=== PATIENT | female | born 1990 | race Caucasian/White ===

== ENCOUNTER 2017-08-09 22:23 | Emergency (ER) | payer BC ==
[~2017-08-09] VITALS: Ht 157.5 cm; Wt 62.0 kg
[~2017-08-09 22:23] MED LIST: CEPH500C3 PO; METR-1 PO; PERC5TAB12 PO; STOO100C PO
[2017-08-09 22:28] VITALS: BP 157/69; PULSE 97; RESP 16; TEMP 98.7; O2SAT 99
[2017-08-10] MEDS ORDERED: CLINDAMYCIN 600 MG/NS PREMIX 50 ML IV ONE (00:45)
--- NOTE | 2017-08-10 01:21 | PD ---
HPI Chief Complaint: Bite or Sting Time Seen by Provider: 00:33 Travel History International Travel<30 days: No Contact w/Intl Traveler<30days: No Traveled to known affect area: No History of Present Illness HPI 27-year-old white female 4 para 2 AB 1 with a approximate 15 week and see presents to emergency department for evaluation of left upper arm redness and swelling. She states that she was bitten by fire ants yesterday in her lower legs and feels that she may been bitten on her left upper arm. She has noted swelling and pain along with a fever yesterday. She has had a low-grade temperature today of 99. She also has noted that she has not felt normal movement since having the problem with her arm. She has not had any care. She denies any nausea vomiting. No abdominal pain. No leakage of fluid or vaginal bleeding. No urinary symptoms. No glossal edema or difficulty swallowing. No shortness of breath or wheezing. Symptoms are moderate. No alleviating symptoms. PFSH Past Medical History Medical History: Denies Significant Hx Tetanus Vaccination: > 5 Years Influenza Vaccination: No ?: LMP: 04/12/17 : 4 Para: 2 Miscarriage: 1 Past Surgical History Ear Surgery: Yes (tubes) Tonsillectomy: Yes Social History Alcohol Use: No Tobacco Use: No Substance Use: No Allergies-Medications (Allergen,Severity, Reaction): Coded Allergies: No Known Allergies (Unverified , 07/12/15) Reported Meds & Prescriptions Reported Meds & Active Scripts Active Reported Melatonin 10 Mg-1 Mg Tab 10 Mg PO HS PRN Plus Iron 29-1 mg ( Vit-Iron Carbonyl) 29 Mg Iron-1 Mg Tab 1 Tab PO DAILY Review of Systems General / Constitutional: Positive: Fever, No: Chills Eyes: No: Visual changes HENT: No: Headaches, Sore Throat, Earache Cardiovascular: No: Chest Pain or Discomfort Respiratory: No: Cough, Shortness of Breath Gastrointestinal: No: Nausea, Vomiting, Abdominal Pain Genitourinary: No: Urgency, Frequency, Dysuria, Hematuria, Discharge, Vaginal Bleeding Musculoskeletal: Positive: Edema, Pain Skin: Positive Rash, Positive Lesions (left ankle), No Hives Neurologic: No: Weakness Psychiatric: No: Depression Endocrine: No: Polydipsia Hematologic/Lymphatic: No: Easy Bruising Physical Exam Narrative GENERAL: Well-developed, well-nourished in no apparent distress. Nontoxic appearing. HEAD: Normocephalic, atraumatic. EYES: Pupils equal round and reactive. Extraocular motions intact. No scleral icterus. No injection or drainage. ENT: Nose clear. Throat without erythema, tonsillar hypertrophy or exudate. Uvula midline. Airway patent. NECK: Trachea midline. Supple, nontender, moves head freely. No central bony tenderness or spasm. CARDIOVASCULAR: Regular rate and rhythm without murmurs, gallops, or rubs. RESPIRATORY: Clear to auscultation. Breath sounds equal bilaterally. No wheezes , rales, or rhonchi. GASTROINTESTINAL: Abdomen soft, non-tender, gravid, mildly obese. No guarding or rebound. Extremities: No clubbing or cyanosis. Examination of the left upper extremity reveals mild to moderate edema, erythema and warmth from the inner aspect of the arm. Down the inner arm to the elbow. There is no pain in the shoulder, elbow, wrist or hand. She has good sensation with good distal pulses. There is no evidence of any skin breakdown. No pustules or obvious insect bites. The right upper extremity is unremarkable. The right lower extremity is unremarkable. The left lower extremity has a few small subcentimeter excoriated unroofed papular lesions. There is calamine lotion on the skin. No edema or erythema. BACK: Nontender without deformity. No flank tenderness. NEUROLOGICAL: Awake, alert and oriented x 3 .Cranial nerves grossly intact. Motor and sensory grossly within normal limits. Normal speech. Data Data Last Documented VS Vital Signs Date Time Temp Pulse Resp B/P (MAP) Pulse Ox O2 Delivery O2 Flow Rate FiO2 08/10/17 01:25 98.7 104 18 136/82 (100) 08/09/17 22:28 99 Orders Orders Complete Blood Count With Diff (08/10/17 00:33) Basic Metabolic Panel (Bmp) (08/10/17 00:33) Complete Rh (08/10/17 00:33) Iv Access Insert/Monitor (08/10/17 00:33) Lactic Acid (08/10/17 00:33) Clindamycin 600 Mg/Ns Premix (Cleocin 60 (08/10/17 00:45) Diphenhydramine Inj (Benadryl Inj) (08/10/17 02:15) Ed Discharge Order (08/10/17 02:48) Labs Laboratory Tests Test 08/10/17 01:15 White Blood Count 7.5 TH/MM3 Red Blood Count 4.18 MIL/MM3 Hemoglobin 12.8 GM/DL Hematocrit 36.0 % Mean Corpuscular Volume 86.1 FL Mean Corpuscular Hemoglobin 30.7 PG Mean Corpuscular Hemoglobin Concent 35.7 % Red Cell Distribution Width 13.2 % Platelet Count 172 TH/MM3 Mean Platelet Volume 8.6 FL Neutrophils (%) (Auto) 59.5 % Lymphocytes (%) (Auto) 27.4 % Monocytes (%) (Auto) 6.9 % Eosinophils (%) (Auto) 5.9 % Basophils (%) (Auto) 0.3 % Neutrophils # (Auto) 4.5 TH/MM3 Lymphocytes # (Auto) 2.1 TH/MM3 Monocytes # (Auto) 0.5 TH/MM3 Eosinophils # (Auto) 0.4 TH/MM3 Basophils # (Auto) 0.0 TH/MM3 CBC Comment DIFF FINAL Differential Comment Blood Urea Nitrogen 6 MG/DL Creatinine 0.46 MG/DL Random Glucose 81 MG/DL Calcium Level 8.5 MG/DL Sodium Level 140 MEQ/L Potassium Level 3.3 MEQ/L Chloride Level 107 MEQ/L Carbon Dioxide Level 25.2 MEQ/L Anion Gap 8 MEQ/L Estimat Glomerular Filtration Rate 162 ML/MIN Lactic Acid Level 1.0 mmol/L MDM Medical Decision Making Medical Screen Exam Complete: Yes Emergency Medical Condition: Yes Medical Record Reviewed: Yes Interpretation(s) Laboratory Tests Test 08/10/17 01:15 White Blood Count 7.5 TH/MM3 Red Blood Count 4.18 MIL/MM3 Hemoglobin 12.8 GM/DL Hematocrit 36.0 % Mean Corpuscular Volume 86.1 FL Mean Corpuscular Hemoglobin 30.7 PG Mean Corpuscular Hemoglobin Concent 35.7 % Red Cell Distribution Width 13.2 % Platelet Count 172 TH/MM3 Mean Platelet Volume 8.6 FL Neutrophils (%) (Auto) 59.5 % Lymphocytes (%) (Auto) 27.4 % Monocytes (%) (Auto) 6.9 % Eosinophils (%) (Auto) 5.9 % Basophils (%) (Auto) 0.3 % Neutrophils # (Auto) 4.5 TH/MM3 Lymphocytes # (Auto) 2.1 TH/MM3 Monocytes # (Auto) 0.5 TH/MM3 Eosinophils # (Auto) 0.4 TH/MM3 Basophils # (Auto) 0.0 TH/MM3 CBC Comment DIFF FINAL Differential Comment Blood Urea Nitrogen 6 MG/DL Creatinine 0.46 MG/DL Random Glucose 81 MG/DL Calcium Level 8.5 MG/DL Sodium Level 140 MEQ/L Potassium Level 3.3 MEQ/L Chloride Level 107 MEQ/L Carbon Dioxide Level 25.2 MEQ/L Anion Gap 8 MEQ/L Estimat Glomerular Filtration Rate 162 ML/MIN Lactic Acid Level 1.0 mmol/L Differential Diagnosis Differential diagnoses: Cellulitis, DVT, allergic reaction, demise, normal Narrative Course IV access is obtained. Routine laboratory tests sent for analysis including CBC , chemistry, lactic, ultrasound of the pelvis, clindamycin 600 mg IV. Lab tests are reassuring. Ultrasound shows a viable IUP. The patient was given additional dose of 50 mg Benadryl IV. The patient will be treated for cellulitis as well as possible allergic reaction. I do not believe that steroids are given indicated at this time. She'll be monitored closely. Procedures Procedure Narrative Bedside transabdominal ultrasound reveals a single IUP with a crown-rump of 15+ 2 with a heart rate of 185. The baby is very active. Diagnosis Primary Impression: Left arm cellulitis Patient Instructions: General Instructions Additional Instructions: Rest. Elevation. Warm compresses. Clindamycin. 50 mg of Benadryl 3 times a day. Recheck with a primary care doctor in 48 hours area Return to the ER if any problems. Med/Other Pt SpecificInfo: Prescription(s) given Scripts Clindamycin (Cleocin) 150 Mg Cap 300 MG PO Q6H for Infection for 7 Days, #56 CAP 0 Refills Prov: Amelia Lindsay MD 08/10/17 Disposition: 01 DISCHARGE HOME Condition: Stable Joey Crawford Aug 10, 2017 01:21
[2017-08-10 01:25] VITALS: BP 136/82; PULSE 104; RESP 18; TEMP 98.7
[2017-08-10] MEDS ORDERED: PREN29TA PO (01:38)
[2017-08-10] MEDS ORDERED: MELA1TAB18 PO (01:38)
[2017-08-10 01:42] LABS: AUTOMATED NEUTROPHIL # 4.5 TH/MM3 (1.8-7.7); BASOPHIL % 0.3 % (0.0-2.0); EOSINOPHIL # 0.4 TH/MM3 (0-0.4); EOSINOPHIL % 5.9 % (0.0-4.0); HEMOGLOBIN 12.8 GM/DL (11.6-15.3); LYMPH % 27.4 % (9.0-44.0); LYMPHOCYTE # 2.1 TH/MM3 (1.0-4.8); MEAN CELL VOLUME 86.1 FL (80.0-100.0); MEAN CORPUSCULAR HEMOGLOBIN 30.7 PG (27.0-34.0); MEAN CORPUSCULAR HGB CONC 35.7 % (32.0-36.0); MEAN PLATELET VOLUME 8.6 FL (7.0-11.0); MONO % 6.9 % (0.0-8.0); MONOCYTE # 0.5 TH/MM3 (0-0.9); NEUT % 59.5 % (16.0-70.0); PLATELET COUNT 172 TH/MM3 (150-450); RED BLOOD COUNT 4.18 MIL/MM3 (4.00-5.30); RED CELL DISTRIBUTION WIDTH 13.2 % (11.6-17.2); WHITE BLOOD COUNT 7.5 TH/MM3 (4.0-11.0)
[2017-08-10 02:01] LABS: BICARBONATE 25.2 MEQ/L (21.0-32.0); CALCIUM 8.5 MG/DL (8.5-10.1); CREATININE 0.46 MG/DL (0.50-1.00)
[2017-08-10] MEDS ORDERED: diphenhydrAMINE HCL 50 MG/ML VIAL IV PUSH ONE (02:15)
[2017-08-10] MEDS ORDERED: CLIN150 PO (02:50)
== END 2017-08-10 03:01 | disposition home or self-care (01) ==
LOC: NEPK 22:23 → NEPD 08-10 03:01
DX: O99.712 Diseases of the skin and subcutaneous tissue complicating pregnancy, second trimester (principal); L03.114 Cellulitis of left upper limb; Z3A.15 15 weeks gestation of pregnancy
CPT/HCPCS: 80048; 83605; 85025; 86901; 96365; 96375; 99284; J1200

== ENCOUNTER 2017-09-19 18:01 | Emergency (ER) | payer BC ==
[~2017-09-19 18:01] MED LIST changes: -CEPH500C3 PO; +CLIN150 PO; +MELA1TAB18 PO; -METR-1 PO; -PERC5TAB12 PO; +PREN29TA PO; -STOO100C PO
[2017-09-19 18:03] VITALS: BP 136/86; PULSE 128; RESP 16; TEMP 100.2; O2SAT 99
[2017-09-19 18:47] LABS: AMORPHOUS SEDIMENT, URINE RARE; BILIRUBIN, URINE NEG (NEG); BLOOD, URINE NEG (NEG); GLUCOSE,URINE NEG (NEG); KETONE, URINE NEG (NEG); MUCUS URINE FEW /lpf (OCC); NITRITE,URINE NEG (NEG); PH, URINE 6.5 (5.0-8.5); SQUAMOUS EPITHELIAL CELL URINE 11 /hpf (0-5); URINE COLOR YELLOW (YELLW/STRAW); URINE LEUKOCYTE ESTERASE TRACE (NEG)
[2017-09-19 18:59] LABS: BASOPHIL % 0.4 % (0.0-2.0); EOSINOPHIL # 0.2 TH/MM3 (0-0.4); EOSINOPHIL % 3.4 % (0.0-4.0); HEMATOCRIT 36.1 % (35.0-46.0); HEMOGLOBIN 12.3 GM/DL (11.6-15.3); LYMPHOCYTE # 0.4 TH/MM3 (1.0-4.8); MEAN CELL VOLUME 87.5 FL (80.0-100.0); MEAN CORPUSCULAR HEMOGLOBIN 29.9 PG (27.0-34.0); MEAN CORPUSCULAR HGB CONC 34.1 % (32.0-36.0); MEAN PLATELET VOLUME 8.4 FL (7.0-11.0); MONO % 10.3 % (0.0-8.0); MONOCYTE # 0.5 TH/MM3 (0-0.9); NEUT % 78.9 % (16.0-70.0); PLATELET COUNT 134 TH/MM3 (150-450); RED BLOOD COUNT 4.12 MIL/MM3 (4.00-5.30); RED CELL DISTRIBUTION WIDTH 13.2 % (11.6-17.2); WHITE BLOOD COUNT 5.1 TH/MM3 (4.0-11.0)
[2017-09-19 19:06] LABS: BICARBONATE 26.1 MEQ/L (21.0-32.0); CALCIUM 8.4 MG/DL (8.5-10.1); CREATININE 0.47 MG/DL (0.50-1.00)
[2017-09-19 19:07] VITALS: BP 122/68; PULSE 122; RESP 18; O2SAT 100
--- NOTE | 2017-09-19 19:22 | PD ---
HPI Chief Complaint: Cold / Flu Symptoms Time Seen by Provider: 19:12 Travel History International Travel<30 days: No Contact w/Intl Traveler<30days: No Traveled to known affect area: No History of Present Illness HPI 27-year-old white female presents emergency department with complaints of flulike symptoms since Tuesday. She states that she has had subjective fever and chills, headache, sore throat, cough, congestion, runny nose, myalgias, arthralgias and general malaise. Some nausea but no vomiting. No diarrhea. No abdominal pain or urinary symptoms. PFSH Past Medical History Narrative Medical Otitis media, hearing loss Tetanus Vaccination: < 5 Years Influenza Vaccination: No ?: LMP: 22 WEEKS GESTATION : 4 Para: 2 Miscarriage: 1 Past Surgical History Ear Surgery: Yes (tubes) Tonsillectomy: Yes Social History Alcohol Use: No Tobacco Use: No Substance Use: No Allergies-Medications (Allergen,Severity, Reaction): Coded Allergies: No Known Allergies (Unverified , 07/12/15) Reported Meds & Prescriptions Reported Meds & Active Scripts Active Cleocin (Clindamycin HCl) 150 Mg Cap 300 Mg PO Q6H 7 Days Reported Melatonin 10 Mg-1 Mg Tab 10 Mg PO HS PRN Plus Iron 29-1 mg ( Vit-Iron Carbonyl) 29 Mg Iron-1 Mg Tab 1 Tab PO DAILY Review of Systems Except as stated in HPI: all other systems reviewed are Neg Physical Exam Narrative GENERAL: Well-developed, well-nourished in no apparent distress. Nontoxic appearing. HEAD: Normocephalic, atraumatic. EYES: Pupils equal round and reactive. Extraocular motions intact. No scleral icterus. No injection or drainage. ENT: Nose clear. Throat without erythema, tonsillar hypertrophy or exudate. Uvula midline. Airway patent. NECK: Trachea midline. Supple, nontender, moves head freely. No central bony tenderness or spasm. CARDIOVASCULAR: Regular rate and rhythm without murmurs, gallops, or rubs. RESPIRATORY: Clear to auscultation. Breath sounds equal bilaterally. No wheezes , rales, or rhonchi. GASTROINTESTINAL: Abdomen soft, non-tender, nondistended. No hepato-splenomegaly , or palpable masses. No guarding. EXTREMITIES: No clubbing, cyanosis, or edema. No joint tenderness. BACK: Nontender without deformity. No flank tenderness. NEUROLOGICAL: Awake, alert and oriented x 3 .Cranial nerves grossly intact. Motor and sensory grossly within normal limits. Normal speech. Data Data Last Documented VS Vital Signs Date Time Temp Pulse Resp B/P (MAP) Pulse Ox O2 Delivery O2 Flow Rate FiO2 09/19/17 19:07 125 18 100 09/19/17 19:07 122/68 (86) 09/19/17 18:03 100.2 Orders Orders Complete Blood Count With Diff (09/19/17 18:07) Basic Metabolic Panel (Bmp) (09/19/17 18:07) Influenzae A/B Antigen (09/19/17 18:07) Urinalysis - C+S If Indicated (09/19/17 18:07) Ed Discharge Order (09/19/17 19:15) Labs Laboratory Tests Test 09/19/17 18:15 White Blood Count 5.1 TH/MM3 Red Blood Count 4.12 MIL/MM3 Hemoglobin 12.3 GM/DL Hematocrit 36.1 % Mean Corpuscular Volume 87.5 FL Mean Corpuscular Hemoglobin 29.9 PG Mean Corpuscular Hemoglobin Concent 34.1 % Red Cell Distribution Width 13.2 % Platelet Count 134 TH/MM3 Mean Platelet Volume 8.4 FL Neutrophils (%) (Auto) 78.9 % Lymphocytes (%) (Auto) 7.0 % Monocytes (%) (Auto) 10.3 % Eosinophils (%) (Auto) 3.4 % Basophils (%) (Auto) 0.4 % Neutrophils # (Auto) 4.0 TH/MM3 Lymphocytes # (Auto) 0.4 TH/MM3 Monocytes # (Auto) 0.5 TH/MM3 Eosinophils # (Auto) 0.2 TH/MM3 Basophils # (Auto) 0.0 TH/MM3 CBC Comment DIFF FINAL Differential Comment Urine Color YELLOW Urine Turbidity HAZY Urine pH 6.5 Urine Specific [place] 1.045 Urine Protein 30 mg/dL Urine Glucose (UA) NEG mg/dL Urine Ketones NEG mg/dL Urine Occult Blood NEG Urine Nitrite NEG Urine Bilirubin NEG Urine Urobilinogen 2.0 MG/DL Urine Leukocyte Esterase TRACE Urine RBC 2 /hpf Urine WBC 2 /hpf Urine Squamous Epithelial Cells 11 /hpf Urine Amorphous Sediment RARE Urine Mucus FEW /lpf Microscopic Urinalysis Comment CULT NOT INDICATED Blood Urea Nitrogen 6 MG/DL Creatinine 0.47 MG/DL Random Glucose 94 MG/DL Calcium Level 8.4 MG/DL Sodium Level 138 MEQ/L Potassium Level 3.7 MEQ/L Chloride Level 105 MEQ/L Carbon Dioxide Level 26.1 MEQ/L Anion Gap 7 MEQ/L Estimat Glomerular Filtration Rate 158 ML/MIN [facility] Medical Decision Making Medical Screen Exam Complete: Yes Emergency Medical Condition: Yes Medical Record Reviewed: Yes Interpretation(s) Laboratory Tests Test 09/19/17 18:15 White Blood Count 5.1 TH/MM3 Red Blood Count 4.12 MIL/MM3 Hemoglobin 12.3 GM/DL Hematocrit 36.1 % Mean Corpuscular Volume 87.5 FL Mean Corpuscular Hemoglobin 29.9 PG Mean Corpuscular Hemoglobin Concent 34.1 % Red Cell Distribution Width 13.2 % Platelet Count 134 TH/MM3 Mean Platelet Volume 8.4 FL Neutrophils (%) (Auto) 78.9 % Lymphocytes (%) (Auto) 7.0 % Monocytes (%) (Auto) 10.3 % Eosinophils (%) (Auto) 3.4 % Basophils (%) (Auto) 0.4 % Neutrophils # (Auto) 4.0 TH/MM3 Lymphocytes # (Auto) 0.4 TH/MM3 Monocytes # (Auto) 0.5 TH/MM3 Eosinophils # (Auto) 0.2 TH/MM3 Basophils # (Auto) 0.0 TH/MM3 CBC Comment DIFF FINAL Differential Comment Urine Color YELLOW Urine Turbidity HAZY Urine pH 6.5 Urine Specific [place] 1.045 Urine Protein 30 mg/dL Urine Glucose (UA) NEG mg/dL Urine Ketones NEG mg/dL Urine Occult Blood NEG Urine Nitrite NEG Urine Bilirubin NEG Urine Urobilinogen 2.0 MG/DL Urine Leukocyte Esterase TRACE Urine RBC 2 /hpf Urine WBC 2 /hpf Urine Squamous Epithelial Cells 11 /hpf Urine Amorphous Sediment RARE Urine Mucus FEW /lpf Microscopic Urinalysis Comment CULT NOT INDICATED Blood Urea Nitrogen 6 MG/DL Creatinine 0.47 MG/DL Random Glucose 94 MG/DL Calcium Level 8.4 MG/DL Sodium Level 138 MEQ/L Potassium Level 3.7 MEQ/L Chloride Level 105 MEQ/L Carbon Dioxide Level 26.1 MEQ/L Anion Gap 7 MEQ/L Estimat Glomerular Filtration Rate 158 ML/MIN Influenza: Positive Differential Diagnosis Differential diagnosis: Bronchitis, pneumonia, influenza, URI Narrative Course Normal patient's laboratory tests have been reviewed. She is positive for the flu. Abdomen soft nontender. Diagnosis Primary Impression: Influenza Patient Instructions: General Instructions Additional Instructions: Rest. Increase fluids. Tylenol. Robitussin-DM. Followup with your Dr. in one week. Return to the ER for any problems. Disposition: 01 DISCHARGE HOME Condition: Stable Joey Crawford Sep 19, 2017 19:22
[2017-09-19] MEDS ORDERED: SODIUM CHLOR 0.9% 1000 ML INJ 1,000 ML IV ONE (19:45)
[2017-09-19] MEDS ORDERED: ACETAMINOPHEN 500 MG CPLT PO ONE (19:45)
== END 2017-09-19 20:23 | disposition home or self-care (01) ==
LOC: NEPD 18:01
DX: O98.512 Other viral diseases complicating pregnancy, second trimester (principal); J11.1 Influenza due to unidentified influenza virus with other respiratory manifestations; Z3A.22 22 weeks gestation of pregnancy
CPT/HCPCS: 80048; 81001; 85025; 87804; 96360; 99284; J7030

== ENCOUNTER 2017-10-22 19:48 | Emergency (ER) | payer BC ==
[~2017-10-22] VITALS: Ht 182.9 cm; Wt 132.0 kg
[2017-10-22 20:19] VITALS: BP 137/68; PULSE 72; RESP 16; TEMP 99.5; O2SAT 94
[2017-10-22 22:20] VITALS: PULSE 99
[2017-10-22 22:25] VITALS: PULSE 105
[2017-10-22 22:30] VITALS: RESP 18
--- NOTE | 2017-10-22 23:03 | PD ---
HPI Chief Complaint pelvic pain Date Seen: Oct 22, 2017 Time Seen: 22:57 Travel History International Travel<30 Days: No Contact w/Intl Traveler<30Days: No Known Affected Area: No History of Present Illness HPI Pt is a leonor 27y/o @ 26.6wks. She has PNC with Dr. Euceda. She presents this evening for symphysis pain. This is chronic and has been present with each . She has found no relief and no one to believe her pain is real. She has inability to transfer wt, lift legs, roll over in bed, and tylenol has not helped. She deneis LOF, VB, ctx. +FM. Weeks Gestation: 26 Para: 2 : 4 History Past Medical History Medical History: Denies Significant Hx Obstetric History Obstetric History PTD x1 FTD x1 Past Surgical History Surgical History: No Previous Surgery Family History Family History: Social History Alcohol Use: No Tobacco Use: No Substance Abuse: No Allergies-Medications (Allergen,Severity, Reaction): Coded Allergies: No Known Allergies (Unverified , 07/12/15) Home Meds Active Scripts Clindamycin (Cleocin) 150 Mg Cap, 300 MG PO Q6H for Infection for 7 Days, #56 CAP 0 Refills Prov:Amelia Lindsay MD 08/10/17 Reported Medications Melatonin (Melatonin) 10 Mg-1 Mg Tab, 10 MG PO HS Y for SLEEP, TAB 0 Refills 08/10/17 Vit-Iron Carbonyl ( Plus Iron 29-1 mg) 29 Mg Iron-1 Mg Tab, 1 TAB PO DAILY for Nutritional Supplement, #30 TAB 0 Refills 08/10/17 Physical Exam Vital Signs Date Time Temp Pulse Resp B/P (MAP) Pulse Ox O2 Delivery O2 Flow Rate FiO2 10/22/17 20:19 99.5 72 16 137/68 (91) 94 Room Air Narrative General: well developed, well nourished, no acute distress HEENT: normocephalic atraumatic, extraocular movements intact, neck supple Abdomen: soft, gravid, nontender, nondistended Uterus: fundus above umbilicus Extremities: limited ROM due to pelvic girdle instability, symphysis TTP Skin: normal coloration, no rashes, no suspicious skin lesions noted Neurologic: cranial nerves 2-12 grossly intact Psychiatric: normal mood and affect, appropriate FHTs: 150s, age appropriate [place]: quiet Data Data Vital Signs Reviewed: Yes Orders Orders Vital Signs (Adult) .ON ADMISSION (10/22/17 22:53) ^ Labor Status (10/22/17 22:53) ^ Non Stress Test (10/22/17 22:53) Ed Discharge Order (10/22/17 22:53) MDM Plan 27y/o @ 26.6wks with symphysis pubis dysfunction. Etiology of the condition reviewed with pt. Advised on limited tx options 2' to (NSAIDs, steroids). Reviewed pelvic girdle brace options and pelvic floor exercises for stability. Advised on assistance with dressing. ORION hose given and pt encouraged against bedrest due to risk of DVT. Advised to discuss option of ortho referral with 1' OBGYN for possible custom brace construction through prosthetics/orthotics. Dispo: d/c home with precautions Diagnosis Diagnosis: Primary Impression: 26 weeks gestation of Patient Instructions: General Instructions, Movement (ED), Abdominal Pain in (ED) Additional Instructions: come back if strong cramping with low back pain, contractions, fluid leakage, bleeding or significant decrease in baby movement. Also if frequent headaches that do not respond to tylenol, vision problems, significantt swelling or right upper quadrant pain Departure Forms: Tests/Procedures Tre Contreras MD Oct 22, 2017 23:03
== END 2017-10-22 23:25 | disposition home or self-care (01) ==
LOC: HOBED 19:48
DX: O26.712 Subluxation of symphysis (pubis) in pregnancy, second trimester (principal); Z3A.26 26 weeks gestation of pregnancy
CPT/HCPCS: 99283

== ENCOUNTER 2018-01-05 10:57 | Inpatient (IN) | payer BC ==
[2018-01-05] MEDS ORDERED: LACTATED RINGER'S 1000 ML INJ 1,000 ML IV SCH ×2 (12:00→14:36)
--- NOTE | 2018-01-05 12:13 | PD ---
HPI Chief Complaint Fever Date Seen: Jan 05, 2018 Time Seen: 11:30 Travel History International Travel<30 Days: No Contact w/Intl Traveler<30Days: No Known Affected Area: No History of Present Illness HPI Patient is a 27-year-old at 37/4 presenting to the ED with fever. Patient states that she developed a fever night before presentation up to 101. She has had URI symptoms with sneezing, coughing and sore throat. Otherwise no nausea, vomiting, chest pain, shortness of breath. She does endorse some right upper quadrant abdominal pain that occurs with sneezing and coughing. Otherwise she denies any vaginal bleeding, gush of fluid, no change in movement, rare contractions. No increasing interval or increasing intensity and contractions. No recent intercourse or trauma. She does not endorse some clear discharge/possible leaking. Of note, patient was seen by Dr. Euceda until 25 weeks gestation when an insurance change no longer allowed her to see that physician. She states she has not seen a physician since that time. History Past Medical History Narrative Medical No significant past medical history Obstetric History Obstetric History Previous deliveries were vaginal. 1 of which was full-term and the other delivered at 35 weeks Past Surgical History Narrative Surgical Tonsillectomy, adenoidectomy in childhood Family History Narrative Family History Diabetes Social History Narrative Social History Lives at home with and 2 biological children and 1 stepchild Currently unemployed Alcohol Use: No Tobacco Use: No Substance Abuse: No Allergies-Medications (Allergen,Severity, Reaction): Coded Allergies: No Known Allergies (Unverified Allergy, Unknown, 01/05/18) Home Meds Active Scripts Clindamycin (Cleocin) 150 Mg Cap, 300 MG PO Q6H for Infection for 7 Days, #56 CAP 0 Refills Prov:Amelia Lindsay MD 08/10/17 Reported Medications Melatonin (Melatonin) 10 Mg-1 Mg Tab, 10 MG PO HS Y for SLEEP, TAB 0 Refills 08/10/17 Vit-Iron Carbonyl ( Plus Iron 29-1 mg) 29 Mg Iron-1 Mg Tab, 1 TAB PO DAILY for Nutritional Supplement, #30 TAB 0 Refills 08/10/17 Review of Systems Except as stated in HPI: all other systems reviewed are Neg Physical Exam Narrative GENERAL: Well-nourished, well-developed patient. SKIN: Warm and dry. HEAD: Normocephalic and atraumatic. EYES: No scleral icterus. No injection or drainage. ENT: No nasal drainage noted. Mucous membranes pink. Airway patent. NECK: Supple, trachea midline. No JVD. CARDIOVASCULAR: Regular rate and rhythm without murmurs, gallops, or rubs. RESPIRATORY: Breath sounds equal bilaterally. No accessory muscle use. ABDOMEN/GI: Abdomen soft, non-tender, bowel sounds present, no rebound, no guarding Gravid to 37 weeks size GENITOURINARY: External Genitalia: intact and normal in appearance Cervix: Posterior Dilatation: 4 cm Effacement: 50 Station: -2 Presentation: vertex Membranes: intact Uterine Contractions: Every 2-3 minutes FHT's: Category: 2 Baseline: 170 Reactive: Yes Variability: Moderate Decels: None EXTREMITIES: No cyanosis or edema. BACK: Nontender without obvious deformity. No CVA tenderness. NEUROLOGICAL: Awake and alert. Motor and sensory grossly within normal limits. Five out of 5 muscle strength in all muscle groups. Normal speech. Data Data Orders Orders Vital Signs (Adult) .ON ADMISSION (01/05/18 11:38) ^ Labor Status (01/05/18 11:38) ^ Non Stress Test (01/05/18 11:38) ^ Hydration (01/05/18 11:38) Cbc No Diff, Includes Plts (01/05/18 11:38) Comprehensive Metabolic Panel (01/05/18 11:38) Group B Beta Strep Scrn (Gbs) (01/05/18 11:38) Lactated Ringer's 1000 Ml Inj (Lr 1000 M (01/05/18 11:38) MDM Plan 27-year-old at 37/4 with relatively poor care presenting to the OB ED with fever. Found to have tachycardia on the monitor and also noted to be 4 cm dilated and hood every 2-3 minutes. -In the setting of fever, tachycardia (baseline 180) will need to rule out chorioamnionitis. Amnisure negative -Has not been seen since 25 weeks gestation per patient. Requesting records Ordering labs of CBC, BMP, hepatitis panel, RPR, HIV, GC chlamydia, UDS GBS PCR is negative -Noted to be 4/50/-2 on admission. Contractions every 2-3 minutes on the monitor. Will recheck in 1 hour. Possibly going into labor. Giving 1 L LR bolus now, Continuous IVF at 125mL/hr -Urine dipstick with trace leukocytes. UA consistent with no culture indicated Diagnosis Diagnosis: Primary Impression: Fever Additional Impression: tachycardia Liam Peña MD R1 Jan 05, 2018 12:13
[2018-01-05] MEDS ORDERED: LACTATED RINGER'S 1000 ML INJ 1,000 ML IV ONE (12:30)
[2018-01-05 12:36] LABS: HEMATOCRIT 37.5 % (35.0-46.0); HEMOGLOBIN 12.4 GM/DL (11.6-15.3); MEAN CELL VOLUME 86.6 FL (80.0-100.0); MEAN CORPUSCULAR HEMOGLOBIN 28.7 PG (27.0-34.0); MEAN CORPUSCULAR HGB CONC 33.2 % (32.0-36.0); MEAN PLATELET VOLUME 8.2 FL (7.0-11.0); PLATELET COUNT 141 TH/MM3 (150-450); RED BLOOD COUNT 4.33 MIL/MM3 (4.00-5.30); RED CELL DISTRIBUTION WIDTH 15.7 % (11.6-17.2); WHITE BLOOD COUNT 9.9 TH/MM3 (4.0-11.0)
[2018-01-05 12:36] LABS: BACTERIA, URINE RARE /hpf; BILIRUBIN, URINE NEG (NEG); BLOOD, URINE NEG (NEG); GLUCOSE,URINE NEG (NEG); KETONE, URINE NEG (NEG); MUCUS URINE FEW /lpf (OCC); NITRITE,URINE NEG (NEG); PH, URINE 7.5 (5.0-8.5); SQUAMOUS EPITHELIAL CELL URINE 3 /hpf (0-5); URINE COLOR YELLOW (YELLW/STRAW); URINE LEUKOCYTE ESTERASE TRACE (NEG)
[2018-01-05 12:56] LABS: ALBUMIN 2.7 GM/DL (3.4-5.0); ALT (GPT) 19 U/L (10-53); AST (GOT) 15 U/L (15-37); BICARBONATE 23.2 MEQ/L (21.0-32.0); BLOOD UREA NITROGEN 4 MG/DL (7-18); CALCIUM 8.9 MG/DL (8.5-10.1); CHLORIDE 106 MEQ/L (98-107); CREATININE 0.41 MG/DL (0.50-1.00); GLOMERULAR FILTRATION RATE 185 ML/MIN (>89); GLUCOSE,RANDOM 82 MG/DL (74-106); SODIUM (NA) 141 MEQ/L (136-145)
[2018-01-05 12:59] LABS: ALKALINE PHOSPHATASE 167 U/L (45-117); TOTAL BILIRUBIN ADULT 0.7 MG/DL (0.2-1.0); TOTAL PROTEIN 6.8 GM/DL (6.4-8.2)
[2018-01-05] MEDS ORDERED: LACTATED RINGER'S 1000 ML INJ 1,000 ML IV PRN (14:36)
[2018-01-05] MEDS ORDERED: LIDOCAINE HCL 1% 50 ML VIAL INFIL PRN (14:45)
[2018-01-05] MEDS ORDERED: CITRIC ACID-SODIUM CITRATE LIQ 30 ML UDC PO SCH (14:45)
[2018-01-05] MEDS ORDERED: MINERAL OIL 10 ML VIAL TOPICAL PRN (14:45)
[2018-01-05] MEDS ORDERED: SODIUM CHLORID 0.9% 500 ML INJ 500 ML IV PRN (14:45)
[2018-01-05] MEDS ORDERED: LIDOCAINE HCL 1% 50 ML VIAL I-DERMAL PRN (14:45)
[2018-01-05] MEDS ORDERED: OXYTOCIN 30 UNITS-500ML PREMIX 500 ML IV ONE (14:45)
[2018-01-05] MEDS ORDERED: ONDANSETRON HCL 4 MG/2 ML VIAL IV PUSH PRN (14:45)
[2018-01-05] MEDS ORDERED: SODIUM CHLOR 0.9% 1000 ML INJ 1,000 ML IV PRN (14:56)
[2018-01-05] MEDS ORDERED: LIDOCAINE 1.5%/EPINEPHrine 1:200,000 PF 5 ML AMP ONE (14:57)
[2018-01-05] MEDS ORDERED: fentaNYL 2MCG-BUPIV 0.125% INJ 150 ML EPIDURAL ONE (15:01)
--- NOTE | 2018-01-05 15:10 | HHI.HP ---
History & Physical H&P HPI Patient is a 27-year-old at 37/4 presenting to the ED with fever. Patient states that she developed a fever night before presentation up to 101. She has had URI symptoms with sneezing, coughing and sore throat. Otherwise no nausea, vomiting, chest pain, shortness of breath. She does endorse some right upper quadrant abdominal pain that occurs with sneezing and coughing. Otherwise she denies any vaginal bleeding, gush of fluid, no change in movement, rare contractions. No increasing interval or increasing intensity and contractions. No recent intercourse or trauma. She does not endorse some clear discharge/possible leaking. Of note, patient was seen by Dr. Euceda until 25 weeks gestation when an insurance change no longer allowed her to see that physician. She states she has not seen a physician since that time. History (Limited) History Past Medical History Narrative Medical No significant past medical history Obstetric History Obstetric History Previous deliveries were vaginal. 1 of which was full-term and the other delivered at 35 weeks Past Surgical History Narrative Surgical Tonsillectomy, adenoidectomy in childhood Family History Narrative Family History Diabetes Social History Narrative Social History Lives at home with and 2 biological children and 1 stepchild Currently unemployed Alcohol Use: No Tobacco Use: No Substance Abuse: No Allergies-Medications Allergies-Medications (Allergen,Severity, Reaction): Coded Allergies: No Known Allergies (Unverified Allergy, Unknown, 01/05/18) Home Meds Active Scripts Clindamycin (Cleocin) 150 Mg Cap, 300 MG PO Q6H for Infection for 7 Days, #56 CAP 0 Refills Prov:Amelia Lindsay MD 08/10/17 Reported Medications Melatonin (Melatonin) 10 Mg-1 Mg Tab, 10 MG PO HS Y for SLEEP, TAB 0 Refills 08/10/17 Vit-Iron Carbonyl ( Plus Iron 29-1 mg) 29 Mg Iron-1 Mg Tab, 1 TAB PO DAILY for Nutritional Supplement, #30 TAB 0 Refills 08/10/17 ROS Review of Systems Except as stated in HPI: all other systems reviewed are Neg Physical Exam Physical Exam Narrative GENERAL: Well-nourished, well-developed patient. SKIN: Warm and dry. HEAD: Normocephalic and atraumatic. EYES: No scleral icterus. No injection or drainage. ENT: No nasal drainage noted. Mucous membranes pink. Airway patent. NECK: Supple, trachea midline. No JVD. CARDIOVASCULAR: Regular rate and rhythm without murmurs, gallops, or rubs. RESPIRATORY: Breath sounds equal bilaterally. No accessory muscle use. ABDOMEN/GI: Abdomen soft, non-tender, bowel sounds present, no rebound, no guarding Gravid to 37 weeks size GENITOURINARY: External Genitalia: intact and normal in appearance Cervix: Posterior Dilatation: 4 cm Effacement: 50 Station: -2 Presentation: vertex Membranes: intact Uterine Contractions: Every 2-3 minutes FHT's: Category: 2 Baseline: 170 Reactive: Yes Variability: Moderate Decels: None EXTREMITIES: No cyanosis or edema. BACK: Nontender without obvious deformity. No CVA tenderness. NEUROLOGICAL: Awake and alert. Motor and sensory grossly within normal limits. Five out of 5 muscle strength in all muscle groups. Normal speech. Data Data Data Orders Orders Vital Signs (Adult) .ON ADMISSION (01/05/18 11:38) ^ Labor Status (01/05/18 11:38) ^ Non Stress Test (01/05/18 11:38) ^ Hydration (01/05/18 11:38) Cbc No Diff, Includes Plts (01/05/18 11:38) Comprehensive Metabolic Panel (01/05/18 11:38) Group B Beta Strep Scrn (Gbs) (01/05/18 11:38) Lactated Ringer's 1000 Ml Inj (Lr 1000 M (01/05/18 11:38) MDM MDM Plan 27-year-old at 37/4 with relatively poor care presenting to the OB ED with fever. Found to have tachycardia on the monitor and also noted to be 4 cm dilated and hood every 2-3 minutes. -In the setting of fever, tachycardia (baseline 180) will need to rule out chorioamnionitis. Amnisure negative -Urine dipstick with trace leukocytes. UA consistent with no culture indicated -Has not been seen since 25 weeks gestation per patient. Requesting records Ordering labs of CBC, BMP, hepatitis panel, RPR, HIV, GC chlamydia, UDS GBS PCR is negative -Noted to be 4/50/-2 on admission. Contractions every 2-3 minutes on the monitor. Recheck with cervical change she was 6/50/-2 Giving 1 L LR bolus now, Continuous IVF at 125mL/hr -With cervical change, will admit for anticipated vaginal delivery. Routine antepartum care. Patient elects to have epidural Liam Peña MD R1 Jan 05, 2018 15:10
[2018-01-05] MEDS ORDERED: ePHEDrine/NS 25 MG/5 ML SYRINGE ONE (15:14)
[2018-01-05] MEDS ORDERED: MEASLES, MUMPS, RUBELLA VACCINE 0.5 ML VIAL SQ ONE (16:00)
[2018-01-05] MEDS ORDERED: DIPHTH/TETANUS/ACEL PERTUSSIS (BOOSTER) 0.5 ML VIAL/PFS IM ONE (16:00)
[2018-01-05] MEDS ORDERED: ePHEDrine/NS 25 MG/5 ML SYRINGE IV PUSH PRN (18:30)
[2018-01-05] MEDS ORDERED: DO NOT ADMINISTER ANTICOAGULANTS PRN (18:30)
[2018-01-05] MEDS ORDERED: fentaNYL 2MCG-BUPIV 0.125% 150 ML EPIDURAL PRN (18:30)
[2018-01-05] MEDS ORDERED: NO SYSTEM NARCOTICS PRN (18:30)
--- NOTE | 2018-01-05 20:16 | PD.LABORPN ---
Subjective Subjective Pt comfortable with epidural. No c/o. Objective Objective Cvx: 50/-3, AROM'd clear [place]: irregular ctx FHTs: cat 1, +accels, no decels Assessment/Plan Assessment and Plan Anticipate Tre Contreras MD Jan 05, 2018 20:16
--- NOTE | 2018-01-05 21:55 | PD.LABORPN ---
Subjective Subjective Patient seen at bedside. She is breathing through contractions and states she has feeling of split pelvis in all previous deliveries. No nausea or vomiting. Cervix 9-10/60/-2 at last check. Expectant management at this time Epidural in place SDW Dr. Tayler Orona,Sarah Cooper MD R2 Jan 05, 2018 21:55
--- NOTE | 2018-01-05 23:28 | PD.OB.DELI ---
Pt started active labor?: Yes Medical induction of labor?: No Anesthesia: Epidural Episiotomy: None Vaginal Delivery: Normal, Spontaneous Presentation: Occiput anterior Nuchal Cord: None Delayed cord clamping (45 sec): Yes Infant: Male Delivery date: Jan 05, 2018 Delivery time: 22:32 One Minute : 8 Five Minute : 9 Weight: 3555g Placenta: Spontaneous delivery, Intact, 3 vessel cord Laceration: 2 deg Repair: Vicryl running Estimated blood loss: 900 Additional Information Most EBL was from vaginal arterial bleed and repair oozing. Approximately 200 was uterine. Tre Contreras MD Jan 05, 2018 23:28
[2018-01-05] MEDS ORDERED: OXYTOCIN 30 UNITS-500ML PREMIX 500 ML IV SCH (23:30)
[2018-01-05] MEDS ORDERED: ONDANSETRON ODT 4 MG TAB PO PRN (23:30)
[2018-01-05] MEDS ORDERED: ACETAMINOPHEN 325 MG TAB PO PRN (23:30)
[2018-01-05] MEDS ORDERED: BENZOCAINE 20% TOPICAL SPRAY 60 ML CAN TOPICAL PRN (23:30)
[2018-01-05] MEDS ORDERED: ZOLPIDEM TARTRATE 5 MG TAB PO PRN (23:30)
[2018-01-05] MEDS ORDERED: SODIUM CHLORIDE 0.9% FLUSH 10 ML FLUSH IV FLUSH PRN (23:30)
[2018-01-05] MEDS ORDERED: DOCUSATE SODIUM 50 MG/SENNA 8.6 MG TAB PO PRN (23:30)
[2018-01-05] MEDS ORDERED: ALUMINUM/MAGNESIUM/SIMETH 30 ML CUP PO PRN (23:30)
[2018-01-06] MEDS: IBUPROFEN 800 MG TAB PO PRN ×4 (01:12→23:51)
[2018-01-06] MEDS: WITCH HAZEL 50%/GLYCERIN 12.5% 40 PAD JAR TOPICAL PRN ×2 (05:27→23:51)
[2018-01-06 05:28] VITALS: BP 104/69; PULSE 87; RESP 18; TEMP 98.2
[2018-01-06] MEDS ORDERED: oxyCODONE/ACETAMINOPHEN 5 MG/325 MG TAB PO PRN (07:30)
[2018-01-06] MEDS ORDERED: NALOXONE HCL 0.4 MG/ML AMP IV PUSH PRN (07:30)
[2018-01-06] MEDS ORDERED: ACETAMINOPHEN 325 MG TAB PO PRN (07:30)
[2018-01-06] MEDS: oxyCODONE/ACETAMINOPHEN 10 MG/325 MG TAB PO PRN ×3 (07:31→19:34)
--- NOTE | 2018-01-06 08:21 | HHI.OB ---
Subjective Remarks Patient is a 27-year-old delivered at 37 weeks and 4 days. Patient is day 1 after . Patient's pain was not well controlled overnight on p.o. Motrin, Tylenol. Patient states she is tolerated codeine/opiates in the past.. Patient reports eating and drinking without any nausea or vomiting. Patient reports minimal bleeding. Patient has passed gas but no bowel movements. Patient is walking without lower extremity pain or shortness of breath. Patient reports desire for contraception with Depo-Provera shot and breast-feeding. Objective Vitals/I&O Vital Signs Date Time Temp Pulse Resp B/P (MAP) Pulse Ox O2 Delivery O2 Flow Rate FiO2 01/06/18 05:28 98.2 87 18 104/69 (81) Objective Remarks GENERAL: Well-nourished, well-developed patient. CARDIOVASCULAR: Regular rate and rhythm without murmurs, gallops, or rubs. RESPIRATORY: Breath sounds equal bilaterally. No accessory muscle use. ABDOMEN/GI: Abdomen soft, non-tender. Fundus: Firm, non-tender at umbilicus. GENITOURINARY: Light to moderate bleeding. EXTREMITIES: No cyanosis or edema, non-tender, without signs of DVT. Medications and IVs Current Medications Medications (Trade) Dose Ordered Sig/Brendan Route Start Time Stop Time Status Last Admin Lactated Ringer's 1,000 ml @ 125 mls/hr Q8H IV 01/05/18 12:00 Lactated Ringer's 1,000 ml @ 125 mls/hr Q8H IV 01/05/18 14:36 01/05/18 20:16 Lactated Ringer's 1,000 ml @ 3,000 mls/hr Q20M PRN IV 01/05/18 14:36 Sodium Chloride 500 ml @ 1,000 mls/hr ONCE PRN IV 01/05/18 14:45 Sodium Chloride 1,000 ml @ 100 mls/hr Q10H PRN IV 01/05/18 14:56 (Xylocaine 1% Inj (50 ml)) 0.1 ml UNSCH X1 PRN I-DERMAL 01/05/18 14:45 01/08/18 14:44 (Bicitra Liq) 30 ml DIGITAL PRODUCTION OPERATOR PO 01/05/18 14:45 01/09/18 14:44 (Zofran Inj) 4 mg Q6H PRN IV PUSH 01/05/18 14:45 (fentaNYL INJ) 50 mcg Q1H PRN IV PUSH 01/05/18 14:45 (fentaNYL INJ) 100 mcg Q1H PRN IV PUSH 01/05/18 14:45 (Xylocaine 1% Inj (50 ml)) 10 ml UNSCH X1 PRN INFIL 01/05/18 14:45 01/07/18 14:44 (Muri-Lube Oil) 10 ml UNSCH PRN TOPICAL 01/05/18 14:45 ([facility] [place] [facility]) No systemic narcotics to be given except... UNSCH PRN .XX 01/05/18 18:30 01/06/18 18:29 ([facility] [place] [facility]) DO NOT ADMINISTER ANY ANTICOAGUL... UNSCH PRN .XX 01/05/18 18:30 01/06/18 18:29 Fentanyl/ Bupivacaine/ Sodium Chlor 150 ml @ 10 mls/hr TITRATE PRN EPIDURAL 01/05/18 18:30 (ePHEDrine/NS 25 MG/5 ML SYR) 10 mg UNSCH PRN IV PUSH 01/05/18 18:30 01/06/18 18:29 (NS Flush) 2 ml BID IV FLUSH 01/06/18 09:00 (NS Flush) 2 ml UNSCH PRN IV FLUSH 01/05/18 23:30 (Motrin) 800 mg Q8H PRN PO 01/05/18 23:30 01/06/18 07:14 (Americaine 20% Top Spr) 1 spray Q4H PRN TOPICAL 01/05/18 23:30 01/06/18 05:27 (Tucks Pads) 1 applic QID PRN TOPICAL 01/05/18 23:30 01/06/18 05:27 (Theresa-Colace) 2 tab Q12H PRN PO 01/05/18 23:30 01/06/18 07:31 (Ambien) 5 mg HS PRN PO 01/05/18 23:30 (Mag-Al Plus Susp Liq) 15 ml Q8H PRN PO 01/05/18 23:30 (Zofran Odt) 4 mg Q6H PRN PO 01/05/18 23:30 (Tylenol) 650 mg Q6H PRN PO 6/8/18 07:30 (Percocet 5-325 Mg) 1 tab Q6H PRN PO 01/06/18 07:30 (Percocet 10-325 Mg) 1 tab Q6H PRN PO 01/06/18 07:30 01/06/18 07:31 (Narcan Inj) 0.4 mg UNSCH PRN IV PUSH 01/06/18 07:30 Assessment/Plan Assessment and Plan Patient is a 27-year-old delivered at 37 weeks and 4 days. Patient is day 1 after . Patient was counseled to do 6 weeks of pelvic rest. Patient was counseled to follow up in 6 weeks. Patient requested follow-up and contraception with Depo-Provera shot. --AF VSS --Continue routine care --Motrin and adding Percocet when necessary for pain --Encourage OOB --Pelvic rest for 6 weeks will need follow-up appointment at that time. --Contraception: Depo-Provera shot --Patient had 900 cc estimated blood loss during delivery, 700 cc of that being due to a complicated laceration. Will repeat CBC this morning. Reporting minimal bleeding at this time. --Anticipate discharge tomorrow Discharge Planning Likely tomorrow Liam Peña MD R1 Jan 06, 2018 08:21
[2018-01-06] MEDS ORDERED: SODIUM CHLORIDE 0.9% FLUSH 10 ML FLUSH IV FLUSH SCH (09:00)
[2018-01-06 09:45] LABS: AUTOMATED NEUTROPHIL # 8.2 TH/MM3 (1.8-7.7); BASOPHIL % 0.3 % (0.0-2.0); EOSINOPHIL # 0.3 TH/MM3 (0-0.4); EOSINOPHIL % 2.6 % (0.0-4.0); HEMATOCRIT 29.7 % (35.0-46.0); HEMOGLOBIN 10.1 GM/DL (11.6-15.3); LYMPH % 13.7 % (9.0-44.0); LYMPHOCYTE # 1.5 TH/MM3 (1.0-4.8); MEAN CELL VOLUME 85.9 FL (80.0-100.0); MEAN CORPUSCULAR HEMOGLOBIN 29.3 PG (27.0-34.0); MEAN CORPUSCULAR HGB CONC 34.1 % (32.0-36.0); MEAN PLATELET VOLUME 7.8 FL (7.0-11.0); MONO % 6.9 % (0.0-8.0); MONOCYTE # 0.7 TH/MM3 (0-0.9); NEUT % 76.5 % (16.0-70.0); PLATELET COUNT 152 TH/MM3 (150-450); RED BLOOD COUNT 3.45 MIL/MM3 (4.00-5.30); RED CELL DISTRIBUTION WIDTH 15.6 % (11.6-17.2); WHITE BLOOD COUNT 10.7 TH/MM3 (4.0-11.0)
[2018-01-07] MEDS: oxyCODONE/ACETAMINOPHEN 10 MG/325 MG TAB PO PRN ×2 (01:47→07:53)
[2018-01-07] MEDS: IBUPROFEN 800 MG TAB PO PRN (07:50)
[2018-01-07] MEDS ORDERED: medroxyPROGESTERone ACETATE SUSP 150 MG/ML SYRINGE IM ONE (08:30)
--- NOTE | 2018-01-07 08:51 | HHI.OB ---
Subjective Post Day: 2 Remarks Patient is a 27-year-old delivered at 37 weeks and 4 days. Patient is day 2 after normal vaginal delivery. Patient's pain is well- controlled. Patient reports eating and drinking without any nausea or vomiting. Patient reports minimal bleeding. Patient has passed gas and bowel movements. Patient is walking with crutches but without lower extremity pain or shortness of breath. Patient reports desire for breast-feeding and is s/p Depo shot. Objective Objective Remarks GENERAL: Well-nourished, well-developed patient. CARDIOVASCULAR: Regular rate and rhythm without murmurs, gallops, or rubs. RESPIRATORY: Breath sounds equal bilaterally. No accessory muscle use. ABDOMEN/GI: Abdomen soft, non-tender. Fundus: Firm, non-tender at umbilicus. GENITOURINARY: Light to moderate bleeding. EXTREMITIES: No cyanosis or edema, non-tender, without signs of DVT. Medications and IVs Current Medications Medications (Trade) Dose Ordered Sig/Brendan Route Start Time Stop Time Status Last Admin Lactated Ringer's 1,000 ml @ 125 mls/hr Q8H IV 01/05/18 12:00 Lactated Ringer's 1,000 ml @ 125 mls/hr Q8H IV 01/05/18 14:36 01/05/18 20:16 Lactated Ringer's 1,000 ml @ 3,000 mls/hr Q20M PRN IV 01/05/18 14:36 Sodium Chloride 500 ml @ 1,000 mls/hr ONCE PRN IV 01/05/18 14:45 Sodium Chloride 1,000 ml @ 100 mls/hr Q10H PRN IV 01/05/18 14:56 (Xylocaine 1% Inj (50 ml)) 0.1 ml UNSCH X1 PRN I-DERMAL 01/05/18 14:45 01/08/18 14:44 (Bicitra Liq) 30 ml STOCK GRADER PO 01/05/18 14:45 01/09/18 14:44 (Zofran Inj) 4 mg Q6H PRN IV PUSH 01/05/18 14:45 (fentaNYL INJ) 50 mcg Q1H PRN IV PUSH 01/05/18 14:45 (fentaNYL INJ) 100 mcg Q1H PRN IV PUSH 01/05/18 14:45 (Xylocaine 1% Inj (50 ml)) 10 ml UNSCH X1 PRN INFIL 01/05/18 14:45 01/07/18 14:44 (Muri-Lube Oil) 10 ml UNSCH PRN TOPICAL 01/05/18 14:45 Fentanyl/ Bupivacaine/ Sodium Chlor 150 ml @ 10 mls/hr TITRATE PRN EPIDURAL 01/05/18 18:30 (NS Flush) 2 ml BID IV FLUSH 01/06/18 09:00 (NS Flush) 2 ml UNSCH PRN IV FLUSH 01/05/18 23:30 (Motrin) 800 mg Q8H PRN PO 01/05/18 23:30 01/07/18 07:50 (Americaine 20% Top Spr) 1 spray Q4H PRN TOPICAL 01/05/18 23:30 01/06/18 05:27 (Tucks Pads) 1 applic QID PRN TOPICAL 01/05/18 23:30 01/06/18 23:51 (Theresa-Colace) 2 tab Q12H PRN PO 01/05/18 23:30 01/06/18 07:31 (Ambien) 5 mg HS PRN PO 01/05/18 23:30 (Mag-Al Plus Susp Liq) 15 ml Q8H PRN PO 01/05/18 23:30 (Zofran Odt) 4 mg Q6H PRN PO 01/05/18 23:30 (Tylenol) 650 mg Q6H PRN PO 01/06/18 07:30 (Percocet 5-325 Mg) 1 tab Q6H PRN PO 01/06/18 07:30 (Percocet 10-325 Mg) 1 tab Q6H PRN PO 01/06/18 07:30 01/07/18 07:53 (Narcan Inj) 0.4 mg UNSCH PRN IV PUSH 01/06/18 07:30 Assessment/Plan Problem List: (1) NVD (normal vaginal delivery) ICD Codes: O80 - Encounter for full-term uncomplicated delivery Assessment and Plan Patient is a 27-year-old delivered at 37 weeks and 4 days. Patient is day 2 after . Patient was counseled to do 6 weeks of pelvic rest. Patient was counseled to follow up in 6 weeks. Patient requested follow-up and has received contraception with Depo-Provera shot. --AF VSS --Continue routine care --Motrin and adding Percocet when necessary for pain --Encourage OOB --Pelvic rest for 6 weeks will need follow-up appointment at that time. --Contraception: s/p Depo-Provera shot --Patient had 900 cc estimated blood loss during delivery, 700 cc of that being due to a complicated laceration. Will repeat CBC this morning: Hemoglobin trended from 12.4-10.1. Reporting minimal bleeding at this time. --Anticipate discharge today D/w Dr. Maldonado Discharge Planning Likely today Sy Hylton MD R2 Jan 07, 2018 08:51
--- NOTE | 2018-01-07 08:53 | HHI.DCPOC ---
Discharge Care Plan Diagnosis: (1) NVD (normal vaginal delivery) Report Symptoms to Your Doctor -Temperature above 100.5 degrees -Redness, of incision or excessive or foul smelling drainage -Unusual pain or calf pain -Increased vaginal bleeding -Painful or difficulty urinating -Feelings of extreme sadness or anxiety after 2 weeks Goals to Promote Your Health * To prevent worsening of your condition and complications, please take medications as prescribed. * To maintain your health at the optimal level, please follow-up with your doctors as recommended. Directions to Meet Your Goals Take your medications as prescribed Follow your dietary instruction Follow activity as directed Ensure plenty of rest for recovery Drink fluids for hydration Keep your appointments as scheduled Take your immunizations and boosters as scheduled If your symptoms worsen call your PCP, if no PCP go to Urgent Care Center or Emergency Room Smoking is Dangerous to Your Health. Avoid second hand smoke Call the 24-hour crisis hotline for domestic abuse at Sy Hylton MD R2 Jan 07, 2018 08:53
[2018-01-07] MEDS ORDERED: OXYC1TAB36 PO (12:31)
== END 2018-01-07 12:36 | disposition home or self-care (01) | DRG 774 ==
LOC: HOBED 10:57 → H2EA 14:41 → H1EA 01-06 05:01
PROVIDERS: ADMIT Obstetrics & Gynecology; ATTEND Obstetrics & Gynecology
PROC: 10E0XZZ Delivery of Products of Conception, External Approach (ICD-10-PCS; principal; 2018-01-05)
PROC: 0KQM0ZZ Repair Perineum Muscle, Open Approach (ICD-10-PCS; 2018-01-05)
PROC: 10907ZC Drainage of Amniotic Fluid, Therapeutic from Products of Conception, Via Natural or Artificial Opening (ICD-10-PCS; 2018-01-05)
DX: O76 Abnormality in fetal heart rate and rhythm complicating labor and delivery (principal); O75.2 Pyrexia during labor, not elsewhere classified; O70.1 Second degree perineal laceration during delivery; O67.8 Other intrapartum hemorrhage; Z37.0 Single live birth; Z3A.37 37 weeks gestation of pregnancy
CPT/HCPCS: 59025; 76816; 76819; 80053; 80074; 80307; 81001; 84112; 85025; 85027; 85461; 86592; 86762; 86850; 86900; 86901; 87081; 87150; 87389; 87491; 87591; 90384; 90715; 96360; G0475; G0481; J1050; J2590; J2790; J7120